=== PATIENT | male | born 1995 | race Caucasian/White ===

== ENCOUNTER 2017-03-02 10:50 | Emergency (ER) | payer OTHER ==
[~2017-03-02] VITALS: Ht 177.8 cm; Wt 72.0 kg
[2017-03-02 10:54] VITALS: Ht 177.8 cm; Wt 72.0 kg
[2017-03-02] MEDS ORDERED: LIDOCAINE/EPINEPHRINE 1% 20 ML VIAL ONE (11:03)
[2017-03-02] MEDS ORDERED: XYLOCAINE 1%/SOD BICARB 20 ML VIAL INFIL ONE (11:15)
--- NOTE | 2017-03-02 12:14 | DIAGNOSTIC IMAGING REPORT ---
RIGHT SECOND FINGER 3 VIEWS CLINICAL HISTORY: Second finger laceration. FINDINGS: 3 views of the right second finger are obtained. No prior studies are available for comparison at the time of dictation. The skeletal structures are well mineralized. No fracture is seen. The second metacarpophalangeal and interphalangeal joints are maintained. Soft tissue edema is present in the second finger, greatest at the level of the proximal interphalangeal joint. No radiodense foreign body is seen. IMPRESSION: Soft tissue swelling with no radiographic evidence of right second finger fracture. Electronically signed by: Ajith Askew M.D. 03/02/2017 12:13 PM Dictated Date/Time: 03/02/2017 12:12 PM
[2017-03-02] MEDS ORDERED: CEFAZOLIN SOD 1000MG/55 ML D5W IV ONE (14:01)
--- NOTE | 2017-03-02 15:02 | EMERGENCY ROOM VISIT NOTE ---
ED Visit Note First contact with patient: 10:54 Chief complaint: Right index finger laceration HPI: This 21-year-old white male presents for evaluation of a laceration on the dorsum of his right index finger. The patient was at a [employer] last evening and was intoxicated. He punched a window and sustained a laceration over the dorsum of his PIP joint and proximal phalanx. There was significant bleeding. Bleeding was controlled with pressure. Did not seek treatment last night and bandaged it himself. Upon evaluation this morning, he realized that he should have it explored and closed. He denies any numbness, tingling, or loss of motion. No other complaints. Tetanus is believed to be up-to-date. Pain is 3/ 10. Right-hand dominant. No prior history of significant hand injury. He is currently chewing, and recently had breakfast. Supplemental sheet was reviewed and signed. Previous surgeries: None Medical history: Unremarkable Current Medications: None Allergies: NKDA Tetanus: Within 10 years Family History: Significant for cancer otherwise unremarkable. Parents are living. Social History: Unemployed. [employer] student. Lives with his parents when at home. Positive tobacco use, positive EtOH use. REVIEW OF SYSTEM: HEENT: No dizziness, visual problems, hearing loss, or tinnitus. There is no difficulty swallowing and no oral lesions are present. PULMONARY: No cough, shortness of breath, sputum production or hemoptysis. CARDIOVASCULAR: No chest pain, palpitations, shortness of breath or peripheral edema. GASTROINTESTINAL: No diarrhea, constipation, nausea, vomiting, or abdominal pain. GENITOURINARY: No dysuria, frequency, urgency or nocturia. NEUROLOGIC: No weakness, muscle tenderness, epilepsy or history of neurological problems. MUSCULOSKELETAL: No history of joint tenderness/swelling. No history of arthritis or arthralgias. SKIN: No rashes or lesions. PSYCHIATRIC: No history of depression or mental illness. ENDOCRINE: No history of diabetes, thyroid disorders, or abnormal hair growth. Physical Exam: Vitals: Afebrile. Reviewed and filed in patient's chart General: Well-developed, well-nourished, young white male, in no acute distress. Obvious discomfort. He is sitting on the bed. Alert and oriented. Skin: Warm and dry with good turgor. No rashes. No ecchymosis or erythema. The patient is not diaphoretic. No abrasions. The patient has a 2 cm longitudinal laceration present over the right index finger IP joint and proximal phalanx. No visible foreign material. Bleeding is controlled. He also has several small superficial abrasions and a small flap laceration over the ring finger proximal phalanx. All of these are currently controlled. There are superficial. They do not require closure. I do not suspect retained foreign body. Musculoskeletal: She has intact function at the index finger for flexion and extension at the MCP, PIP, and DIP joints. He has intact function for the FDS and FDP through isolation. Strength is 5/5 for resisted flexion and extension of the index finger. Neurologic: Gross sensation is intact across the digits of the right hand by soft touch. Capillary refill is equal for each of the digits. Data: Imaging obtained today of the right index finger shows no retained foreign body and no bone fragment. Impression: Right index finger 2 cm laceration with tendon and joint involvement Procedure: Informed oral consent was obtained for repair. Right index finger was prepped with Betadine and draped with a sterile towel. Digital block was given using 5 mL 1% plain lidocaine. Number is drain was applied and a tourniquet fashion to assist with visualization. Thorough inspection was performed. Suffered obtaining finger retractors were used. Patient has violated the radial aspect of the capsule and the articular surface of the joint is exposed and visible. He has also violated approximately 50% of the width of his extensor tendon on the radial aspect. It is a crescentic flap. Wound was irrigated copiously using diluted Betadine with normal sterile saline under jet spray lavage. Wound was closed using 5-0 nylon. Excellent wound edge approximation was achieved. Hemostasis was achieved. He was placed in an AlumaFoam splint in extension. Plan: Patient was educated regarding today's findings. Conservative care measures were discussed. IV was established. Patient was given Ancef 2 g IV. I did speak with Dr. Oden who came to the ED and evaluated the patient. He will require further irrigation and tendon repair in the OR. Please see that dictation for final management. Current/Historical Medications Unable to Obtain Active Prescriptions or Reported Meds Allergies Coded Allergies: No Known Allergies (Unverified , 03/02/17) Vital Signs Date Time Temp Pulse Resp B/P (MAP) Pulse Ox O2 Delivery O2 Flow Rate FiO2 03/02/17 13:09 57 16 148/71 98 Room Air 03/02/17 10:54 36.5 81 16 110/70 99 Room Air Medications Administered Medications (Trade) Dose Ordered Sig/Ifeanyi Route Start Time Stop Time Status Last Admin Dose Admin Lidocaine HCl (Buffered Lidocaine 1% Inj) 20 ml NOW ONCE INFIL 03/02/17 11:15 03/02/17 11:16 DC 03/02/17 11:11 20 ML Cefazolin Sodium (Ancef 2000mg/60 ml D5W) 2,000 mg PREOP ONCE IV 03/03/17 06:00 03/03/17 06:01 03/02/17 14:03 2,000 MG Departure Information Prescriptions Unable to Obtain Active Prescriptions or Reported Meds Referrals No Doctor, Assigned (PCP) Patient Instructions [facility], [facility]
[2017-03-02] MEDS ORDERED: BACITRACIN 50000 UNIT VIAL ONE (17:41)
[2017-03-02] MEDS ORDERED: BUPIVACAINE 0.5 % 5 MG/1 ML MPF 30ML VIAL ONE (17:43)
--- NOTE | 2017-03-02 18:03 | ORTHOPEDIC CONSULTATION ---
DATE OF CONSULTATION: 03/02/2017 CHIEF COMPLAINT: Right index finger laceration. 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 He punched his hand to a window late last night. He did wrap his hand, he came to the Emergency Room this morning and he had his right index finger irrigated and debrided by the ER PA. The PA states that there was a greater than 50% laceration of the extensor tendon and the laceration went into the PIP joint. He was loosely closed in the Emergency Room and orthopedics was consulted for a formal treatment. PAST MEDICAL HISTORY: Denies. MEDICATIONS: None. ALLERGIES: None. PAST SURGICAL HISTORY: None. FAMILY HISTORY: Noncontributory. 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 He is from [place]. REVIEW OF SYSTEMS: He complains of right finger pain. All other pertinent review of systems is negative. PHYSICAL EXAMINATION: His finger is wrapped at the moment. There is a crescent-shaped laceration directly over the PIP joint. It is loosely closed with nylon suture. His finger is currently out on a full extension. IMPRESSION: Extensor tendon laceration of the right index finger. PLAN: We are going to take him to the operating room and do a formal I&D and put a suture in the extensor tendon. Afterwards, he will be placed in a finger splint and discharged to home with oral pain medications.
[2017-03-02 18:30] VITALS: O2SAT 98
[2017-03-02] MEDS ORDERED: MIDAZOLAM HCL 1 MG/ML 2ML VIAL ONE ×2 (19:08→19:11)
[2017-03-02] MEDS ORDERED: FENTANYL CITRATE INJ 50 MCG/1 ML 2 ML VIAL ONE (19:10)
[2017-03-02] MEDS ORDERED: CEFAZOLIN SOD 1 GM VIAL ONE ×2 (19:18→19:23)
[2017-03-02] MEDS ORDERED: PROPOFOL IV EMULSION 10 MG/ML 20 ML VIAL IV ONE (19:18)
[2017-03-02] MEDS ORDERED: HYDR-5688 PO (19:50)
[2017-03-02] MEDS ORDERED: CEPH500C2 PO (19:50)
--- NOTE | 2017-03-02 19:53 | Discharge Instructions ---
Discharge Instructions Date of Service Mar 02, 2017. Admission Reason for Admission: Deep Cut Discharge Discharge Diagnosis / Problem: Extensor tendon repair Right index finger Discharge Goals Goal(s): Decrease discomfort, Improve function Activity Recommendations Activity Limitations: as noted below keep splint clean, dry, and intact . Instructions / Follow-Up Instructions / Follow-Up follow up with Dr Oden in 15 days for suture removal Current Hospital Diet Patient's current hospital diet: Discharge Diet Recommended Diet: Regular Diet Procedures Procedures Performed: Extensor Tendon Repair Right Index Finger Pending Studies Studies pending at discharge: no Medical Emergencies . Who to Call and When: Medical Emergencies: If at any time you feel your situation is an emergency, please call 911 immediately. . Non-Emergent Contact Non-Emergency issues call your: Surgeon Call Non-Emergent contact if: wound has increased drainage, wound has increased redness . "Provider Documentation" section prepared by Efren Oden. . VTE Core Measure Inpt VTE Proph given/why not?: Treatment not indicated
--- NOTE | 2017-03-02 19:54 | [facility] Post Operative Brief Note ---
Immediate Operative Summary Operative Date Mar 02, 2017. Pre-Operative Diagnosis Extensor tendon laceration of right index finger Post-Operative Diagnosis Extensor tendon laceration of right index finger Procedure(s) Performed Extensor Tendon Repair Right Index Finger Surgeon Dr. Oden Whitewasher Surgeon(s) none Estimated Blood Loss 1 cc Findings as above Specimens none per surgeon Complication(s) None Disposition Recovery Room / PACU
[2017-03-02] MEDS ORDERED: FLUMAZENIL 0.1 MG/1 ML 10 ML VIAL IV PRN (20:00)
[2017-03-02] MEDS ORDERED: KETOROLAC TROMETHAMINE 30 MG/ML VIAL IV. PRN (20:00)
[2017-03-02] MEDS ORDERED: NALOXONE HCL 0.4 MG/1 ML VIAL/CARP IV PRN (20:00)
[2017-03-02] MEDS ORDERED: ATROPINE SULFATE 0.1 MG/ML 5ML SYR IV PRN (20:00)
[2017-03-02] MEDS ORDERED: EpHEDrine SULFATE INJ 50 MG/ML AMP IV PRN (20:00)
[2017-03-02] MEDS ORDERED: ONDANSETRON INJ 2 MG/ML 2 ML VIAL IV PRN (20:00)
[2017-03-02] MEDS ORDERED: HYDROmorphone INJ 1 MG/ML SYR IV PRN (20:00)
[2017-03-02] MEDS ORDERED: PROMETHAZINE HCL INJ 12.5 MG in SODIUM CHLORIDE 0.9% 50ML 50 ML IV PRN (20:00)
--- NOTE | 2017-03-02 20:01 | Anesthesiology Progress Note ---
Anesthesia Post Op Note Date & Time Mar 02, 2017 at 20:01 Vital Signs Pain Intensity: 0 Vital Signs Past 12 Hours Date Time Temp Pulse Resp B/P (MAP) Pulse Ox O2 Delivery O2 Flow Rate FiO2 03/02/17 19:50 36.2 64 12 130/69 99 Room Air 03/02/17 18:30 56 18 133/68 98 Room Air 03/02/17 17:06 60 18 131/67 98 03/02/17 15:15 64 18 116/60 98 Room Air 03/02/17 13:09 57 16 148/71 98 Room Air 03/02/17 10:54 36.5 81 16 110/70 99 Room Air Notes Mental Status: alert / awake / arousable, participated in evaluation Pt Amnestic to Procedure: Yes Nausea / Vomiting: adequately controlled Pain: adequately controlled Airway Patency, RR, SpO2: stable & adequate BP & HR: stable & adequate Hydration State: stable & adequate Anesthetic Complications: no major complications apparent
[2017-03-02 20:16] VITALS: BP 127/71; PULSE 59; TEMP 36.7; O2SAT 97
--- NOTE | 2017-03-02 23:28 | OPERATIVE REPORT ---
DATE OF OPERATION: 03/02/2017 PREOPERATIVE DIAGNOSIS: Extensor tendon laceration at the proximal interphalangeal joint of the right index finger. POSTOPERATIVE DIAGNOSIS: Same. PROCEDURE: Open extensor tendon repair of the right index finger. SURGEON: Dr. Efren Oden. CUTTER WET MACHINE: None. ANESTHESIA: Digital block with sedation. COMPLICATIONS: None. CONDITION: Stable to PACU. 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 He punched his hand through a glass door window last night. He wrapped his hand in gauze and then came to the Emergency Room today. The Emergency Room PA did an exploration of the finger and found 50% laceration of the extensor tendon. He closed up the wound and decided to take it to the operating room for extensor tendon repair. He was brought from the Emergency Room to the preoperative holding area and the operative extremity was identified and signed. He was then taken back to the operating room, laid on the table in supine position, he was given basic sedation. A digital block was given to the right index finger. A timeout was done, and the patient and operative extremity was properly identified. There was a longitudinal laceration directly over the PIP joint, that was opened up. Dissection was taken directly down to the extensor tendon. There was a J-shaped tear in the extensor tendon which involved the radial slip. A 4-0 FiberWire was used to repair the tendon. A total of 4 strands were used to get across the tendon. I was able to fully flex and extend his finger. The wound was irrigated with a total of 3 liters of normal saline solution with bacitracin. The skin was then closed with 4-0 nylon suture. He was then placed in a soft dressing and a volar splint. He was then taken to the postanesthesia care unit in stable condition. He tolerated the procedure well. I attest to the content of the Intraoperative Record and any orders documented therein. Any exceptions are noted below. FAVIAN
[2017-03-03] MEDS ORDERED: CEFAZOLIN IV 2,000 MG/60 ML D5W IV ONE (06:00)
== END 2017-03-02 18:31 | disposition home or self-care (01) ==
LOC: C.EDB 10:51 → C.EDD 18:31
DX: S66.320A Laceration of extensor muscle, fascia and tendon of right index finger at wrist and hand level, initial encounter (principal); S61.210A Laceration without foreign body of right index finger without damage to nail, initial encounter; W25.XXXA Contact with sharp glass, initial encounter; Z72.0 Tobacco use; S60.416A Abrasion of right little finger, initial encounter

== ENCOUNTER 2018-03-02 05:47 | Emergency (ER) | payer OTHER ==
[~2018-03-02] VITALS: Ht 175.3 cm; Wt 73.5 kg
[2018-03-02 05:52] VITALS: TEMP 36.3; Ht 175.3 cm; Wt 73.5 kg
[2018-03-02] MEDS ORDERED: TRIAMCINOLONE ACET 0.1% CR 80 GM TUBE EXT STA (05:57)
--- NOTE | 2018-03-02 06:04 | EMERGENCY ROOM VISIT NOTE ---
History First contact with patient: 05:55 Chief Complaint: RASH Stated Complaint: RASH/ITCHINESS-POISON SANTIAGO FLARE UP History of Present Illness The patient is a 22 year old male who presents to the Emergency Room with complaints of itchy rash to bilateral arms neck and chest for the past few days that is steadily getting worse. Patient states he had poison santiago a few weeks ago but within the past few days this rash has developed. No new food soaps or detergents. He has not tried any for the rash. Patient denies chest pain, dyspnea, fevers, flulike illness, throat tightness, feeling of impending doom, abdominal pain. He is tolerating p.o. fluids and food. Review of Systems An 10 system review of systems was completed with positives and pertinent negatives listed in the HPI. Past Medical/Surgical History None Social History Smoking Status: Never Smoker Alcohol Use: occasionally Drug Use: none Marital Status: single Occupation Status: [employer] student Physical Exam Vital Signs Date Time Temp Pulse Resp B/P (MAP) Pulse Ox O2 Delivery O2 Flow Rate FiO2 03/02/18 05:52 36.3 49 20 124/73 100 Room Air Physical Exam VITALS: Vitals are noted on the nurse's note and reviewed by myself. Vital signs stable. GENERAL: Pleasant male, in no acute distress, nondiaphoretic, well-developed well-nourished. SKIN: Capillary reflex less than 2 seconds. Arms chest and neck with erythematous raised blanchable dermatitis without palpable abscess or lymphangitis. No mouth involvement. No rash the palms or soles of the feet. No blistering. HEENT: Normocephalic. PERRLA. EOMI. Nares patent. Mucous membranes moist. Neck is supple without nuchal rigidity. HEART: Regular rate and rhythm without murmurs gallops or rubs. LUNGS: Clear to auscultation bilaterally without wheezes, rales or rhonchi. No retractions or accessory muscle use. ABDOMEN: Positive bowel sounds x 4. Normal tympanic percussion. Soft, nontender, without masses or organomegaly. Mcrae sign negative. No guarding or rebound tenderness. MUSCULOSKELETAL: No gross musculoskeletal defects. NEURO: Patient was alert and oriented to person place and time. Normal sensation to light and sharp touch. No focal neurological deficits. Medical Decision & Procedures ED Course Prior records/ancillary studies reviewed. Triage Nursing notes reviewed. The patient's history was concerning for a rash. Differential diagnosis: Etiologies such as contact dermatitis, viral exanthem, urticaria, allergic reaction, Campbell-Winston syndrome, toxic epidermal necrolysis, erythema multiforme, cellulitis, scabies, HSV, varicella, zoster, eczema, staph scalded skin syndrome, fungal infection, as well as others were entertained. Physical examination: As above ER treatment provided: Prednisone, steroid cream, Benadryl On reassessment the patient felt better. Diagnostic interpretation by me: The etiology for the patient's rash appears to be consistent with contact dermatitis, most likely allergic. Patient states is quite itchy. The rash is blanchable. He had no airway compromise. He was neurovascularly and neurologically intact. He was advised to try antihistamines and avoid scratching the area. He was advised to follow-up health services in a few days here in the ER sooner for fevers, chest pain, difficulty breathing, throat tightness, worsening signs or symptoms or as needed. By the evaluation outlined above emergent etiologies such as Campbell-Winston syndrome, toxic epidermal necrolysis, erythema multiforme, cellulitis, scabies, HSV, varicella, zoster, staph scalded skin syndrome, as well as others were deemed relatively unlikely. The pt informed about the findings as listed above. All questions were answered and pleased with the treatment. Return instructions were outlined and the patient was discharged in stable condition. Outpatient prescription management: Prednisone Referral: The patient was referred back to their primary care physician/S for follow-up in 2-3 days for a recheck of the current condition. The chart was completed utilizing [employer] Speech voice recognition software. Grammatical errors, random word insertions, pronoun errors, and incomplete sentences are an occassional consequence of this system due to software limitations, ambient noise, and hardware issues. Any formal questions or concerns about the content, text, or information contained within the body of this dictation should be directly addressed to the physician golf course assistant for clarification. Medical Decision as above Medication Reconcilliation Current Medication List: was personally reviewed by me Blood Pressure Screening Patient's blood pressure: Normal blood pressure Impression Primary Impression: Contact dermatitis Departure Information Dispostion Home / Self-Care Condition GOOD Referrals No Doctor, Assigned (PCP) Patient Instructions My [facility] Additional Instructions Triamcinolone cream: Apply 2-3 times a day to the affected areas, not to your face, as needed for itching rash. Prednisone 50mg: Once daily until the prescription is finished. It is best to take this earlier in the day as some patients note occasional difficulty falling asleep when taken in the late evening. Diphenhydramine(Benadryl) 25mg: use 25 to 50 mg every six hours for swelling, itching, or hives. This medication is sedating and will cause drowsiness. Avoid alcohol, operating machinery or dangerous equipment, working on ladders or roofs, DRIVING, or situations where being under the influence may be dangerous. Benadryl is available [id number]. Continue current medications. Return to the emergency department for worsening of your rash, swelling of your face, lips, tongue, or throat, difficulty breathing, vomiting, or as needed. Follow-up with your primary care physician/S in 2 to 3 days for a recheck of your current condition. Problem Qualifiers Primary Impression: Contact dermatitis Contact dermatitis type: unspecified Contact dermatitis trigger: unspecified trigger Qualified Codes: L25.9 - Unspecified contact dermatitis, unspecified cause
[2018-03-02] MEDS ORDERED: PRED50TA PO (06:05)
[2018-03-02 06:11] VITALS: BP 120/57; PULSE 60; O2SAT 98
== END 2018-03-02 06:12 | disposition home or self-care (01) ==
LOC: C.EDB 05:48 → C.EDA 06:12
DX: L25.9 Unspecified contact dermatitis, unspecified cause (principal)